=== PATIENT | male | born 1980 | race Hispanic/Latino ===

== ENCOUNTER → 2023-01-13 | Emergency (ER) | payer BC, OTHER ==
[~2023-01-13] VITALS: Ht 162.6 cm; Wt 81.6 kg
[2023-01-13 17:10] VITALS: BP 105/60; PULSE 111; RESP 16; O2SAT 95
== END ==
LOC: EDH 17:05
DX: M79.89 Other specified soft tissue disorders (principal); Z53.21 Procedure and treatment not carried out due to patient leaving prior to being seen by health care provider